=== PATIENT | male | born 1960 | race Caucasian/White ===

== ENCOUNTER 2021-04-07 08:46 | Outpatient (CLI) | payer MEDICARE, SELFPAY ==
--- NOTE | 2021-04-07 11:00 | NEURO_ITS ---
PATIENT NUMBER:[id number] IMPRESSION: # Complains of burning feet. Not diabetic. # Normal nerve conduction studies. # No evidence of tarsal tunnel syndrome # Problem could be related to small fiber neuropathy. Clinical correlation recommended. Nerve Conduction Studies Anti Sensory Summary Table Stim Site NR Peak (ms) P-T Amp (?V) Site1 Site2 Delta-P (ms) Dist (cm) Erwin (m/s) Left Sup Fibular Anti Sensory (Ant Lat Mall) 14 cm 3.3 7.5 14 cm Ant Lat Mall 3.3 16.0 48 Right Sup Fibular Anti Sensory (Ant Lat Mall) 14 cm 2.9 13.1 14 cm Ant Lat Mall 2.9 16.0 55 Left Sural Anti Sensory (Lat Mall) Calf 3.9 4.0 Calf Lat Mall 3.9 16.0 41 Right Sural Anti Sensory (Lat Mall) Calf 2.9 5.4 Calf Lat Mall 2.9 16.0 55 Motor Summary Table Stim Site NR Onset (ms) O-P Amp (mV) Site1 Site2 Delta-0 (ms) Dist (cm) Erwin (m/s) Left Lateral Plantar Motor (ADM) Med Mall 4.1 1.2 Right Lateral Plantar Motor (ADM) Med Mall 4.0 4.5 Left Peroneal Motor (Vastus Med) Ankle 4.3 4.7 Popit Ankle 3.4 37.0 109 Popit 0.9 5.2 Right Peroneal Motor (Vastus Med) Ankle 3.8 1.4 Popit Ankle 8.2 38.0 46 Popit 12.0 1.1 Left Tibial Motor (Abd Blancas Brev) Ankle 4.3 6.3 Right Tibial Motor (Abd Blancas Brev) Ankle 4.0 4.3 Knee Ankle 9.4 39.0 41 Knee 13.4 2.2 F Wave Studies NR F-Lat (ms) L-R F-Lat (ms) Left Peroneal (Mrkrs) (EDB) 51.77 0.19 Right Peroneal (Mrkrs) (EDB) 51.96 0.19 Left Tibial (Mrkrs) (Abd Hallucis) 51.56 1.03 Right Tibial (Mrkrs) (Abd Hallucis) 52.59 1.03 EMG Side Muscle Nerve Root Ins Act Fibs Amp Dur Recrt Comment Right AntTibialis Dp Br Fibular L4-5 Nml Nml Nml Nml Nml Right Gastroc Tibial S1-2 Nml Nml Nml Nml Nml Right Fibularis Long Sup Br Fibular L5-S1 Nml Nml Nml Nml Nml Right Flex Dig Long Tibial L5-S2 Nml Nml Nml Nml Nml Right Ext Dig Brev Dp Br Fibular L5, S1 Nml Nml Nml Nml Nml Left AntTibialis Dp Br Fibular L4-5 Nml Nml Nml Nml Nml Left Gastroc Tibial S1-2 Nml Nml Nml Nml Nml Left Fibularis Long Sup Br Fibular L5-S1 Nml Nml Nml Nml Nml Left Flex Dig Long Tibial L5-S2 Nml Nml Nml Nml Nml Left Ext Dig Brev Dp Br Fibular L5, S1 Nml Nml Nml Nml Nml Left AbdDigQuinti LatPlantar S1-2 Nml Nml Nml Nml Nml Right AbdDigQuinti LatPlantar S1-2 Nml Nml Nml Nml Nml MTDD
== END 2021-04-07 08:47 | disposition home or self-care (01) ==
PROVIDERS: PCP Family Medicine; Visit Provider Physician Assistant
DX: R20.0 Anesthesia of skin (principal)
CPT/HCPCS: 95886; 95910; 95911

== ENCOUNTER 2021-05-17 14:20 | Outpatient (CLI) | payer MEDICARE, SELFPAY ==
[2021-05-17 15:01] LABS: CRP 1.2 mg/dL (<1.0)
[2021-05-17 15:19] LABS: Erythrocyte Sedimentation Rate 63 mm/hr (0-20)
== END 2021-05-17 14:21 | disposition home or self-care (01) ==
LOC: ANHLAB 14:23
PROVIDERS: PCP Family Medicine; Visit Provider Physician Assistant
DX: R51.9 Headache, unspecified (principal)
CPT/HCPCS: 36415; 85652; 86140

== ENCOUNTER 2021-07-27 12:19 | Outpatient (CLI) | payer MEDICARE, SELFPAY ==
--- NOTE | ~2021-07-27 | XR_ITS ---
EXAMINATION: XR chest 2V DATE: 07/27/2021 12:36 INDICATION: Lung cancer. Cough and congestion. TECHNIQUE: Frontal and lateral views of the chest were obtained. COMPARISON: Chest single view 11/03/2003, chest CT 03/31/2016 FINDINGS: There is a mass in left upper lobe. No pleural effusion or pneumothorax. The heart size is normal. Median sternotomy wires and mediastinal surgical clips are seen, likely from prior coronary a rtery bypass grafting. There is a right internal jugular port with tip in proximal right atrium. Ther e are suture anchors in right humeral head. There is an old healed fracture of left clavicle. IMPRESSION: 1. Left lung upper lobe mass, consistent primary bronchogenic carcinoma. Reviewed, dictated and finalized at location A.
== END 2021-07-27 12:20 | disposition home or self-care (01) ==
LOC: ANHIMG 12:23
PROVIDERS: PCP Family Medicine; Visit Provider Physician Assistant
DX: C34.90 Malignant neoplasm of unspecified part of unspecified bronchus or lung (principal); R05.9 Cough, unspecified; R91.8 Other nonspecific abnormal finding of lung field
CPT/HCPCS: 71046